=== PATIENT | female | born 1980 | race Caucasian/White ===

== ENCOUNTER 2016-10-19 19:51 | Emergency (ER) | payer OTHER ==
[2016-10-19 20:00] VITALS: BP 132/82
[2016-10-19 20:35] LABS: microscopic required? NO
[2016-10-19 20:37] LABS: BASOPHIL % 0.6 % (0-2); PLATELET COUNT 241 x10^3mcL (130-400); RED CELL DISTRIBUTION WIDTH 12.8 % (11.5-14.5)
[2016-10-19 20:42] LABS: CALCIUM 9.1 mg/dL (8.5-10.1); CARBON DIOXIDE 26.8 mmol/L (21-32); CHLORIDE SERUM 103 mmol/L (98-107); CREATININE SERUM 0.7 mg/dL (0.6-1.0); GFR1 > 60 mL/min; GLUCOSE SERUM 89 mg/dL (74-106); POTASSIUM SERUM 3.3 mmol/L (3.5-5.1); SODIUM SERUM 137 mmol/L (136-145)
[2016-10-19 20:47] LABS: ALBUMIN 4.5 g/dL (3.4-5.0); ALKALINE PHOSPHATASE 39 U/L (46-116); ALT/SGPT 15 U/L (14-59); AST/SGOT 12 U/L (15-37); BILIRUBIN TOTAL 1.08 mg/dL (0.20-1.00); TOTAL PROTEIN, SERUM 7.8 g/dL (6.4-8.2)
[2016-10-19 21:03] LABS: urine erythrocyte NEGATIVE (NEGATIVE)
[2016-10-19 21:34] LABS: CK-MB < 0.5 ng/mL (0-3.6); CREATINE KINASE 67 U/L (26-192)
== END 2016-10-19 22:18 | disposition home or self-care (01) ==
LOC: ED 19:51
PROVIDERS: Emergency Medicine
DX: R53.1 Weakness (principal); R11.0 Nausea; R42 Dizziness and giddiness; R07.89 Other chest pain; M54.5 Low back pain; R06.02 Shortness of breath
CPT/HCPCS: 36415; 85378